=== PATIENT | male | born 1995 | race Caucasian/White ===

== ENCOUNTER 2017-08-31 02:10 | Emergency (ER) | payer SELFPAY ==
[~2017-08-31] VITALS: Ht 167.6 cm; Wt 98.0 kg
[2017-08-31] MEDS ORDERED: KETOROLAC 60MG/2ML VIAL IM ONE (03:30)
[2017-08-31 07:41] VITALS: BP 119/73
== END 2017-08-31 07:35 | disposition home or self-care (01) ==
LOC: ER 02:10
DX: M25.552 Pain in left hip (principal); M25.551 Pain in right hip; R10.2 Pelvic and perineal pain; V49.49XA Driver injured in collision with other motor vehicles in traffic accident, initial encounter; Y93.89 Activity, other specified; Y92.410 Unspecified street and highway as the place of occurrence of the external cause; Z98.890 Other specified postprocedural states
CPT/HCPCS: 72192; 73521; 96372; 99284; J1885; Z7610